=== PATIENT | female | born 2000 | race Caucasian/White ===

== ENCOUNTER 2023-07-21 08:58 | Outpatient (CLI) | payer OTHER, SELFPAY ==
[2023-07-21 14:57] LABS: Chlamydia DNA Amplified* NOT DETECTED (No Detected); GC DNA Amplified* NOT DETECTED (No Detected)
== END 2023-07-21 08:59 | disposition home or self-care (01) ==
PROVIDERS: PCP Physician Assistant Medical; Visit Provider Physician Assistant Medical
DX: Z00.00 Encounter for general adult medical examination without abnormal findings (principal); R10.2 Pelvic and perineal pain; Z11.3 Encounter for screening for infections with a predominantly sexual mode of transmission; Z13.6 Encounter for screening for cardiovascular disorders
CPT/HCPCS: 80061; 87491; 87591

== ENCOUNTER 2023-07-21 13:43 | Outpatient (CLI) | payer OTHER, SELFPAY ==
--- NOTE | 2023-07-21 14:00 | CRLHL7_ITS ---
For Patients: As a result of the Century Cures Act, medical imaging exams and procedure reports are released immediately into your electronic medical record. You may view this report before your referring provider. If you have questions, please contact your health care provider. CLINICAL HISTORY: Pelvic and perineal pain TECHNIQUE: 2D durand scale ultrasound. In addition color Doppler and spectral Doppler analysis was performed of the pelvis using a transabdominal and transvaginal approach. FINDINGS: The myometrium has a normal uniform echotexture. The uterus measures 7.3 x 4.3 x 4.4 cm. Intrauterine device is present within the endometrial canal in good position. The right ovary measures 2.6 x 1.9 x 2.3 cm in size and the left ovary measures 6.0 x 4.9 x 5.6 cm. The ovaries demonstrate normal arterial and venous blood flow on color Doppler and spectral Doppler analysis. A simple circumscribed anechoic left ovarian cyst is present measuring 5.7 x 4.4 x 5.2 cm. There are no suspicious fluid collections within the cul-de-sac. IMPRESSION: 5.7 cm simple left ovarian cyst. No torsion or excess pelvic free fluid. Good position of the IUD. No uterine fibroid. Dictated by Alfred Myers MD @ 07/21/2023 3:06:02 PM (Electronically Signed)
== END 2023-07-21 13:44 | disposition home or self-care (01) ==
PROVIDERS: PCP Physician Assistant Medical; Visit Provider Physician Assistant Medical
DX: R10.2 Pelvic and perineal pain (principal); N83.202 Unspecified ovarian cyst, left side
CPT/HCPCS: 76830; 76856; 93976

== ENCOUNTER 2024-10-11 16:18 | Outpatient (CLI) | payer OTHER, SELFPAY ==
--- OUTSIDE RECORDS SUMMARY | 2024-10-11 16:21 | XMS_ITS | Clinical Summary ---
Author Organization [place] Address [address] [place] [address] Care Team Providers Care Gaming Cage Worker Name Role Phone Unavailable Primary Care Provider Unavailabl e Allergies No known active allergies Medications norethindrone-et hinyl estradiol-iron (ESTROSTEP FE) 1-20/1-30/1-35 MG-MCG tablet Take 1 tablet by mouth daily Active sertraline (ZOLOFT) 50 MG tablet 12/22/2019 Active Active Problems Problem Noted Date Diagnosed Date Fracture of nose, closed 12/05/2019 Overview (12/05/2019): Added automatically from request for surgery [id number] Acquired nasal deformity 12/05/2019 Overview (12/05/2019): Added automatically from request for surgery [id number] Nasal congestion 12/05/2019 Overview (12/05/2019): Added automatically from request for surgery [id number] Family History Medical History Relation Comments Diabetes Father Diabetes Maternal Grandfather Hypertension Maternal Grandfather Depression Maternal Grandmother Mental Illness Maternal Grandmother Relation Status Comments Father Maternal Grandfather Maternal Grandmother Social History Tobacco Use Types Packs/Day Years Used Date Smoking Tobacco: Never Smokeless Tobacco: Never Alcohol Use Standard Drinks/Week Comments Yes 0 (1 standard drink = 0.6 oz pure alcohol) Once every three weeks - not more than two drinks PHQ-2 Answer Date Recorded PHQ-2 Score 0 01/18/2020 Adolescent Education Answer Date Record ed Getting School Help Needed Not on file 08/13 Comments Unknown Sex and Gender Information Value Date Recorded Sex Assigned at Not on file Legal Sex Female 11:00 AM CARRIER WASHER Gender Identity Not on file Sexual Orientation Not on file Last Filed Vital Signs Vital Sign Reading Time Taken Comments Blood Pressure 114/74 01/04/2020 10:22 AM CARRIER WASHER Pulse 82 01/04/2020 10:22 AM CARRIER WASHER Temperature 36.8 C (98.2 F) 01/04/2020 10:22 AM CARRIER WASHER Respiratory Rate 17 01/04/2020 10:22 AM CARRIER WASHER Oxygen Saturation 100% 12/06/2019 3:10 PM CARRIER WASHER Inhaled Oxygen Concentration - - Weight 64.9 kg (143 lb) 01/18/2020 1:19 PM CARRIER WASHER Height 170 cm (5' 6.93) 01/18/2020 1:19 PM CARRIER WASHER Body Mass Index 22.44 01/18/2020 1:19 PM CARRIER WASHER Plan of Treatment Not on file Insurance [facility]
--- OUTSIDE RECORDS SUMMARY | 2024-10-11 16:21 | XMS_ITS | Referral Summary ---
Author Organization [place] Address [address] [address] Care Team Providers Care Spot Man Name Role Phone Unavailable Primary Care Provider Unavailabl e Allergies No known active allergies Medications norethindrone-et hinyl estradiol-iron (ESTROSTEP FE) 1-20/1-30/1-35 MG-MCG tablet Take 1 tablet by mouth daily Active sertraline (ZOLOFT) 50 MG tablet 12/22/2019 Active Active Problems Problem Noted Date Diagnosed Date Fracture of nose, closed 12/05/2019 Overview (12/05/2019): Added automatically from request for surgery [id number] Acquired nasal deformity 12/05/2019 Overview (12/05/2019): Added automatically from request for surgery [id number] Nasal congestion 12/05/2019 Overview (12/05/2019): Added automatically from request for surgery [id number] Social History Tobacco Use Types Packs/Day Years [...] on file Legal Sex Female 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 DIGITAL PRINTER Gender Identity Not on file Sexual Orientation Not on file Last Filed Vital Signs Vital Sign Reading Time Taken Comments Blood Pressure 114/74 01/04/2020 10:22 AM DIGITAL PRINTER Pulse 82 01/04/2020 10:22 AM DIGITAL PRINTER Temperature 36.8 C (98.2 F) 01/04/2020 10:22 AM DIGITAL PRINTER Respiratory Rate 17 01/04/2020 10:22 AM DIGITAL PRINTER Oxygen Saturation 100% 12/06/2019 3:10 PM DIGITAL PRINTER Inhaled Oxygen Concentration - - Weight 64.9 kg (143 lb) 01/18/2020 1:19 PM DIGITAL PRINTER Height 170 cm (5' 6.93) 01/18/2020 1:19 PM DIGITAL PRINTER Body Mass Index 22.44 01/18/2020 1:19 PM DIGITAL PRINTER Plan of Treatment Not on file Insurance [facility]
--- OUTSIDE RECORDS SUMMARY | 2024-10-11 16:21 | XMS_ITS | Clinical Summary ---
Author Organization [facility] Address [address] [place] [address] Care Team Providers Care Airport Shuttle Driver Name Role Phone Irma Horner PA-C Primary Care Provider [phone] Source Comments You are receiving this document as you are listed as the primary care provider,follow-up provider, or the patient has been referred to you for consultation.This is in compliance with the Medicare and[facility] EHR Incentive Program,which states Providers who transition their patient to another setting of careor provider of care or refers their patient to another provider of care shouldprovide summary care record for each transition of care or referral. [facility] Allergies No known active allergies Medications Medication Sig Dispensed Refills Start Date End Date Status buPROPion (WELLBUTRIN XL) 150 MG 24 hour release tablet Take 1 Tablet (150 mg) by mouth daily. 06/05/2023 Active levonorgestrel (MIRENA) 20 MCG/DAY IUD 08/02/2022 Active sertraline (ZOLOFT) 50 MG tablet Take 1.5 Tablets (75 mg) by mouth. 07/27/2023 Active Immunizations Name Administration Dates Next Due 9vHPV (Gardasil 9) 01/03/2023, 2,07/19/2022,2018 DTaP 04/26/2006, 2,2001,2000,2001 HepA Ped/Adol (1-18 yrs) 07/04/2015,06/25/2013 HepB Ped/Adol (0-18 yrs) 10/09/2002,04/09/2002,0 01/09/2002 HepB, Unspecified Formulation 10/09/2002 ,04/09/2002,01/09/2002,2000 Hib (ActHIB) 10/10/2002, 1,2001,2000 Hib, Unspecified Formulation 10/10/2002, 2001,2001,2000 IPV (Polio) 04/26/2006, 2,2001,2000 Influenza IIV4 (Quadrivalent ) 0.5mL ([id number]) 08/02/2022,08/21/2021,08/25/2020,2018 MCV4 Menveo 2m.+ (two vial) 06/01/2019, 5 MMR 04/26/2006,07/10/2002,2001 MMRV (ProQuad) 2001 Moderna Monovalent 12+ 11/25/2021 Pfizer Monovalent 12+ Purple Top 04/03/2021,04/2 12/2020 Pneumococcal 7, PED 2001,2001,2000 Polio, Unspecified Formulation 6,01/09/2002,2001,2000 Tdap 07/19/2022,06/15/2013 Varicella 07/04/2015, 3,04/09/2002,2000 Social History Tobacco Use Types Packs/Day Years Used Date Smoking Tobacco: Never Smokeless Tobacco: Never Tobacco Cessation:Counseling Given: Not Answered Alcohol Use Standard Drinks/Week Comments Yes 0 (1 standard drink = 0.6 oz pur e alcohol) Sex and Gender Information Value Date Recorded Sex Assigned at Not on file Gender Identity Not on file Sexual Orientation Not on file Last Filed Vital Signs Vital Sign Reading Time Taken Comments Blood Pressure 106/72 07/29/2023 9:32 AM CDT Pulse 70 07/29/2023 9:32 AM CDT Temperature - - Respiratory Rate - - Oxygen Saturation - - Inhaled Oxygen Concentration - - Weight 81.6 kg (180 lb) 07/29/2023 9:32 AM CDT Height - - Body Mass Index - - Plan of Treatment Health Maintenance Due Date Last Done Comments Cervical Cancer Screening Due 2001 Hep C Screening (Preventive Services) 2001 HIV Screening (Preventive Services) 2017 Adult Preventive Visit 2019 COVID-19 Vaccine ( season) 2024 11/25/2021, 04/03/2021, 03/12/2021 Influenza (#1) 2024 12/30/2023, 07/22, 08/21/2021, Additional history exists Chlamydia 02/15/2025 02/16/2024, 07/2024, 07/21/2023, Additional history exists DTaP/Tdap/Td (8 - Tdap) 07/19/2032 07/19/20, 06/15/2013, 04/26/2006, Additional history exists Zoster/Shingles (1 of 2) 2051 Pneumococcal Aged Out 2001, 07/22, 2001 No longer eligible based on patient's age to complete this topic HepB Completed 10/09/2002, 09/21, 04/09/2002, Additional history exists Hib Completed 10/10/2002, 09/22, 2001, Additional history exists IPV (Polio) Completed 04/26/2006, 04/2006, 01/09/2002, Additional history exists HepA Completed 07/04/2015, 06/25/2013 Varicella Completed 07/04/2015, 05/22, 04/09/2002, Additional history exists MCV4 Completed 06/01/2019, 07/04/2015 HPV Vaccine Completed 01/03/2023, 08/21, 07/19/2022, Additional history exists Infant RSV Aged Out No longer eligi ble based on patient's age to complete this topic Care Teams Airport Shuttle Driver Relationship Specialty Start Date End Date Irma Horner PA-C [address] [place] [address] PCP - General Physician Sheet Roller Operator 07/29/23
== END 2024-10-11 16:19 | disposition home or self-care (01) ==
PROVIDERS: PCP Physician Assistant Medical; Visit Provider Physician Assistant Medical
DX: E78.5 Hyperlipidemia, unspecified (principal); N76.0 Acute vaginitis; F41.9 Anxiety disorder, unspecified; Z13.0 Encounter for screening for diseases of the blood and blood-forming organs and certain disorders involving the immune mechanism; Z13.89 Encounter for screening for other disorder
CPT/HCPCS: 80053; 80061; 82306; 84443